=== PATIENT | male | born 1940 | race Caucasian/White ===

== ENCOUNTER 2019-12-26 17:18 | Inpatient (IN) | payer OTHER ==
[~2019-12-26] VITALS: Ht 182.9 cm; Wt 106.0 kg
[2019-12-26] MEDS ORDERED: SODIUM CHLORIDE 0.9% 500 ML IVB ONE (17:32)
[2019-12-26 19:22] LABS: Hematocrit 43.2 % (41.0-53.0); Hemoglobin 14.3 g/dL (13.5-17.5); Mean Corpuscular Hemoglobin 28.9 pg (28.0-32.0); Mean Corpuscular Hgb Conc. 33.1 g/dL (32.0-36.0); Mean Corpuscular Volume 87.3 fL (80.0-100.0); Platelet Count (auto) 163 10^3/uL (140-450); Red Blood Cells 4.95 10^6/uL (4.5-5.90); Red Cell Distribution Width 13.7 % (11.8-14.3); White Blood Cell 13.6 10^3/uL (4.4-10.8)
[2019-12-26 19:25] LABS: Basophils % (manual) 0 (0.0-2.0); Blast Cells 0; Eosinophils % (manual) 0 (0-7); Metamyelocytes % 0; Myelocytes % 0; Promyelocytes % 0; Reactive Lymphocytes 0
[2019-12-26 19:33] LABS: Alanine Aminotransferase 25 U/L (16-61); Albumin 3.5 g/dL (3.4-5.0); Anion Gap 8 (5-15); Aspartate Aminotransferase 17 U/L (15-37); Blood Alcohol < 3.0 mg/dL (0-5); Blood Urea Nitrogen 23 mg/dL (7-18); Calcium 8.3 mg/dL (8.5-10.1); Carbon Dioxide 23 mmol/L (21-32); Chloride 108 mmol/L (98-107); GFR African American 56 mL/min; GFR Non-African American 47 mL/min; Glucose 103 mg/dL (74-106); Magnesium 2.1 mg/dL (1.6-2.6); Potassium 3.8 mmol/L (3.5-5.1); Sodium 139 mmol/L (136-145)
[2019-12-26 19:38] LABS: Alkaline Phosphatase 81 U/L (45-117); Bilirubin, Total 0.4 mg/dL (0.2-1.0); Total Protein 7.5 g/dL (6.4-8.2)
[2019-12-26 20:17] LABS: Band Neutrophils % (manual) 1; Lymphocytes % (manual) 6 (10.0-50.0); Monocytes % (manual) 3 (0-12)
[2019-12-26] MEDS ORDERED: HYDROcodone-ACET 5/325MG TAB PO PRN (21:45)
[2019-12-26] MEDS ORDERED: DOCUSATE SOD 100 MG CAP PO PRN ×2 (21:45)
[2019-12-26] MEDS ORDERED: DEXTROSE (50%) 50ML SYRG IV PRN (21:45)
[2019-12-26] MEDS ORDERED: ACETAMINOPHEN 325 MG TAB PO PRN ×2 (21:45)
[2019-12-26] MEDS ORDERED: MORPHINE SULFATE 4 MG/ML SYR/VIAL IV PRN (21:45)
--- NOTE | 2019-12-26 22:58 | NUR ---
Telemetry admit from ER [facility] admitted to Telemetry unit after SBAR received. Patient oriented to YAMIL LIAO, RN primary RN, unit, room, bed, and unit policies regarding patient care and visiting hours. Patient now on continuous telemetry monitoring, tele box # 36 and telemetry reading on arrival to unit is NSR. Family at the bedside. Patient weighed by bedscale and encouraged to call if they need something. Safety measures in place bed in lowest position, side rails x2 up, and call light within reach. All questions and concerns addressed, patient verbalized understanding.
[2019-12-26 23:00] VITALS: BP 116/62
[2019-12-27 00:02] LABS: Urine Bacteria NONE SEEN /hpf (None Seen); Urine Blood Negative /uL (Negative); Urine Mucus FEW (None Seen); Urine Specific Gravity 1.021 (1.001-1.035); Urine WBC 1 /hpf (0 - 3)
[2019-12-27] MEDS: InsuLIN REG 1unit/0.01ml Soln (100units/ml) SC SCH ×7 (00:34→23:49)
[2019-12-27] MEDS: ACCU-CHEK COMFORT CURVE STRIP VI SCH ×7 (00:34→23:47)
--- NOTE | 2019-12-27 01:39 | NUR ---
IV removal IV DC'd with sterile technique, catheter fully intact. Pressure dressing applied to site. Patient tolerated procedure well. IV insertion IV access obtained, via clean sterile technique by inserting 22 gauge catheter at Right AC after 3 attempts. IV secured properly. No trauma to site. Patient tolerated procedure well.
[2019-12-27] MEDS ORDERED: GABA300C10 PO (03:28)
[2019-12-27] MEDS ORDERED: LISI2.5T47 PO (03:28)
[2019-12-27] MEDS ORDERED: TAMS1CAP25 PO (03:28)
[2019-12-27] MEDS ORDERED: SIMV-8 PO (03:28)
[2019-12-27] MEDS ORDERED: ASPI-404 PO (03:28)
[2019-12-27] MEDS ORDERED: METO25TA5 PO (03:28)
[2019-12-27] MEDS ORDERED: HYDR-4833 PO (03:28)
[2019-12-27] MEDS ORDERED: GLIP10TA9 PO (03:28)
[2019-12-27 05:09] VITALS: BP 102/65
[2019-12-27 06:06] LABS: Basophils # (auto) 0.1 uL; Basophils % (auto) 0.6 % (0.0-2.0); Eosinophils # (auto) 0 uL; Eosinophils % (auto) 0.1 % (0.0-7.0); Hematocrit 39.3 % (41.0-53.0); Hemoglobin 13.1 g/dL (13.5-17.5); Lymphocytes # (auto) 1.9 uL; Lymphocytes % (auto) 11.9 % (10.0-50.0); Mean Corpuscular Hemoglobin 29.2 pg (28.0-32.0); Mean Corpuscular Hgb Conc. 33.3 g/dL (32.0-36.0); Mean Corpuscular Volume 87.6 fL (80.0-100.0); Monocytes # (auto) 0.9 uL; Monocytes % (auto) 5.6 % (0.0-12.0); Neutrophils # (auto) 12.9 uL; Neutrophils % (auto) 81.8 % (37.0-80.0); Platelet Count (auto) 147 10^3/uL (140-450); Red Blood Cells 4.48 10^6/uL (4.5-5.90); Red Cell Distribution Width 13.9 % (11.8-14.3); White Blood Cell 15.7 10^3/uL (4.4-10.8)
[2019-12-27 06:25] LABS: Cholesterol 110 mg/dL (< 200)
[2019-12-27 06:27] LABS: Calcium 8.3 mg/dL (8.5-10.1); Potassium 3.7 mmol/L (3.5-5.1)
[2019-12-27 06:28] LABS: HDL Cholesterol 38 mg/dL (40-59); LDL Cholesterol 59 mg/dL (< 100); Triglycerides 109 mg/dL (< 150)
[2019-12-27 06:30] LABS: BUN/Creatinine Ratio 15.4
--- NOTE | 2019-12-27 08:01 | NUR ---
OPENING SHIFT NOTE Assumed care of patient. PT is awake and alert. No S/S of distress OR SOB. Bed in lowest position with side rails UP x2, and call light within reach. Instructed on POC and to call for assist PRN, will continue to monitor for changes Q1hr.
[2019-12-27 09:06] VITALS: BP 91/51
[2019-12-27] MEDS: cefTRIAXone 1GM/50ML D5W 50 ML IV SCH (09:24)
[2019-12-27 13:00] VITALS: BP 111/61
[2019-12-27] MEDS ORDERED: SODIUM CHLORIDE 0.9% 500 ML IV ONE (14:45)
[2019-12-27] MEDS ORDERED: SODIUM CHLORIDE 0.9% 1,000 ML IV ONE (15:55)
[2019-12-27 17:00] VITALS: BP 150/65
--- NOTE | 2019-12-27 19:25 | NUR ---
Opening Shift Note Assumed care of patient, awake and alert. No S/S of distress/SOB or pain. Safety measures in place bed in lowest position, side rails x2 up, and call light within reach. Instructed on POC and to call for assist PRN, will continue to monitor for changes Q1hr and PRN.
--- NOTE | 2019-12-27 20:15 | NUR ---
Patient refused Insulin coverage for BS 165. Patient stated "I take Glipizide at home, and I just ate". Educated patient on the risk and benefits of his decision; patient verbalized understanding. Will continue to monitor.
--- NOTE | 2019-12-27 20:45 | NUR ---
Patient requesting to speak to his . Patient provided phone number for home and we connected him to his .
[2019-12-27 22:00] VITALS: BP 136/73
--- NOTE | 2019-12-28 01:00 | NUR ---
Patient still awake. Patient requesting to speak to his . Informed patient it is 0100. Patient stated "Please call my she is normally awake at this time". Called patient's informed her of his request, and insistence to speak to her. Patient is now calm and laying in bed.
[2019-12-28] MEDS: InsuLIN REG 1unit/0.01ml Soln (100units/ml) SC SCH ×4 (04:00→16:00)
[2019-12-28] MEDS: ACCU-CHEK COMFORT CURVE STRIP VI SCH ×4 (04:18→16:19)
[2019-12-28 05:00] VITALS: BP 140/80
[2019-12-28 06:03] LABS: Basophils # (auto) 0.1 uL; Basophils % (auto) 0.6 % (0.0-2.0); Eosinophils # (auto) 0 uL; Eosinophils % (auto) 0.1 % (0.0-7.0); Hematocrit 41.3 % (41.0-53.0); Hemoglobin 13.6 g/dL (13.5-17.5); Lymphocytes # (auto) 1.4 uL; Lymphocytes % (auto) 10.5 % (10.0-50.0); Mean Corpuscular Hemoglobin 28.9 pg (28.0-32.0); Mean Corpuscular Hgb Conc. 32.8 g/dL (32.0-36.0); Mean Corpuscular Volume 88.2 fL (80.0-100.0); Monocytes # (auto) 0.9 uL; Monocytes % (auto) 7.2 % (0.0-12.0); Neutrophils # (auto) 10.8 uL; Neutrophils % (auto) 81.6 % (37.0-80.0); Platelet Count (auto) 144 10^3/uL (140-450); Red Blood Cells 4.68 10^6/uL (4.5-5.90); Red Cell Distribution Width 13.6 % (11.8-14.3); White Blood Cell 13.2 10^3/uL (4.4-10.8)
[2019-12-28 06:37] LABS: Calcium 8.6 mg/dL (8.5-10.1); Potassium 3.9 mmol/L (3.5-5.1)
[2019-12-28 06:42] LABS: BUN/Creatinine Ratio 14.4
--- NOTE | 2019-12-28 07:30 | NUR ---
Opening Shift Note Assumed care of patient, awake and alert. No S/S of distress/SOB or pain. Instructed on POC and to call assist PRN, will continue to monitor for changes Q1hr and PRN.
[2019-12-28 08:00] VITALS: BP 134/69
[2019-12-28 08:30] VITALS: BP 134/69
[2019-12-28] MEDS: cefTRIAXone 1GM/50ML D5W 50 ML IV SCH (09:52)
[2019-12-28 12:30] VITALS: BP 128/71
[2019-12-28 16:54] VITALS: BP 135/69
[2019-12-28] MEDS ORDERED: POLYETHYLENE GLYCOL 17 GM PWDR PO ONE (17:45)
--- NOTE | 2019-12-28 19:27 | NUR ---
Patient discharged home. Patient and family verbalized understanding of discharge orders, and follow up instructions. Patient IV removed, telemetry box removed and returned. Patient escorted off unit by staff via wheelchair.
--- NOTE | 2019-12-29 12:10 | NUR ---
Weekend parts control clerk-I did not receive a page regarding the social service consult for this patient. I contacted [facility] [phone] and spoke with Roseanne, she said [facility] will follow the patient-she will call me back regarding the status of the walker.
--- NOTE | 2019-12-29 14:03 | NUR ---
I spoke with Roseanne at [facility], she said patient already has rollator walker at home.
== END 2019-12-28 19:27 | disposition home health service (06) | DRG 92 ==
LOC: EDBD 17:18 → ER 17:18 → TELE 17:19 → TELE-CENTR 22:59
PROVIDERS: ADMIT Hospitalist; ATTEND Hospitalist
DX: G92 Toxic encephalopathy (principal); N17.9 Acute kidney failure, unspecified; M62.82 Rhabdomyolysis; E11.40 Type 2 diabetes mellitus with diabetic neuropathy, unspecified; E78.5 Hyperlipidemia, unspecified; I10 Essential (primary) hypertension; M16.0 Bilateral primary osteoarthritis of hip; D72.829 Elevated white blood cell count, unspecified; N40.0 Benign prostatic hyperplasia without lower urinary tract symptoms; Z86.73 Personal history of transient ischemic attack (TIA), and cerebral infarction without residual deficits
CPT/HCPCS: 36415; 70450; 71045; 73502; 80048; 80053; 80061; 80320; 81001; 82550; 82962; 83036; 83605; 83735; 84484; 85007; 85025; 85027; 87040; 93005; 96360; 97116; 97163; 97530; 99291; G0378; J0696; J1815